=== PATIENT | female | born 1970 | race American Indian/Alaskan Native ===

== ENCOUNTER 2020-05-15 09:12 | Day surgery (SDC) | payer BC ==
[~2020-05-15 09:12] MED LIST: SODIUM CHLORIDE 0.9% 1000 ML 1,000 ML IV SCH
[2020-05-15] MEDS ORDERED: LIDOCAINE MPF (2%) 20 MG/1 ML VIAL 5 ML ONE (09:30)
--- NOTE | 2020-05-15 11:02 | Anesthesia Day of Surgery ---
Anesthesia Day of Surgery - Day of Surgery Patient Examined: Yes Patient H&P Reviewed: Yes Patient is NPO: Yes
--- NOTE | 2020-05-15 11:02 | Anesthesia Consultation ---
Anesthesia Consult and Med Hx - Airway Anesthetic Teeth Evaluation: Good ROM Head & Neck: Adequate Mental/Hyoid Distance: Adequate Mallampati Class: Class I Intubation Access Assessment: Good - Pulmonary Exam CTA: Yes - Cardiac Exam Cardiac Exam: RRR - Pre-Operative Health Status ASA Pre-Surgery Classification: ASA1 Proposed Anesthetic Plan: MAC - Pulmonary Hx Smoking: No Hx Respiratory Symptoms: No - Cardiovascular System Hx Hypertension: No - Central Nervous System CVA: No - Gastrointestinal Hx Gastroesophageal Reflux Disease: Yes - Endocrine Hx Renal Disease: No Hx Liver Disease: No Hx Insulin Dependent Diabetes: No Hx Non-Insulin Dependent Diabetes: No Hx Thyroid Disease: No - Other Systems Hx Obesity: Yes
[2020-05-15] MEDS ORDERED: propofoL 200 MG/20 ML VIAL IV ONE ×2 (11:48→11:49)
--- NOTE | 2020-05-15 12:12 | Procedure Note ---
Date of procedure: 05/15/20 Pre-op diagnosis: GERD/ Dyspepsia Post-op diagnosis: other (Mild to Moderate Erosive Esophagitis/ Gastritis/ No Peptic Ulcer Disease) Procedure: EGD with Biopsy Anesthesia: MAC Surgeon: RONAK REECE Estimated blood loss: minimal Pathology: list Specimen disposition: to lab Condition: stable Disposition: same day (Treat with PPI; avoid aspirin and NSAID for 4 days, otherwise resume home medication. Follow up in 1 to 2 weeks ([phone]).)
--- NOTE | 2020-05-15 12:19 | Operative Report ---
PROCEDURE: Esophagogastroduodenoscopy with biopsy. INDICATIONS: This is a 49-year-old -[place] female who has been having some GERD and dyspeptic symptoms. EGD was done to assess for any associated peptic ulcer disease or any significant upper GI pathology. DESCRIPTION OF PROCEDURE: The procedure was done after getting informed consent with MAC anesthesia. Instrument was passed through the hypopharynx into the esophagus, which showed [id number] distal erosive esophagitis. Stomach showed antral gastritis. No additional pathology was noted on the retroverted view. The pylorus was patent. The duodenum in the first and second portion appeared normal. Biopsy was done from the gastric antrum, gastric body and angular incisura to rule out for H. pylori and atrophic gastritis. Additional biopsy was done from the distal esophagus to assess for the severity of erosive esophagitis. There was minimal bleeding associated with the biopsies. No complications associated with the procedure. ASSESSMENT: Gastroesophageal reflux disease symptoms. No peptic ulcer disease noted. Mild to moderate distal erosive esophagitis, gastritis. PLAN: To treat the patient with PPI, have the patient avoid aspirin and aspirin-related products for the next few days and follow up in the office in 1-2 weeks' time. The procedure was done in the GI lab with assistance of the GI lab team, which included ALLY Bee, jones Olmedo and with assistance of anesthesia. JOB# [id number] VALENTIN/LAURA
[2020-05-15 13:28] VITALS: BP 117/51
--- NOTE | 2020-05-15 14:10 | Post Anesthesia Evaluation ---
- Post Anesthesia Evaluation Patient Participated: Yes Airway Patent: Yes Stable Respiratory Function: Yes Nausea/Vomiting: No Temp > 96.8F: Yes Pain Manageable: Yes Adequeate Hydration: Yes Anesthesia Complications: No
== END 2020-05-15 09:13 | disposition home or self-care (01) ==
LOC: GIO 09:12
DX: K21.0 Gastro-esophageal reflux disease with esophagitis (principal); R10.13 Epigastric pain; K29.70 Gastritis, unspecified, without bleeding; E66.9 Obesity, unspecified; Z98.890 Other specified postprocedural states; Z96.652 Presence of left artificial knee joint; Z91.040 Latex allergy status; Z79.899 Other long term (current) drug therapy; Z98.891 History of uterine scar from previous surgery; Z68.41 Body mass index [BMI] 40.0-44.9, adult
CPT/HCPCS: 43239; 88305; 88342; J2704; J7030